=== PATIENT | male | born 1960 | race Hispanic/Latino ===

== ENCOUNTER 2019-11-27 06:33 | Outpatient (CLI) | payer BC ==
[2019-11-27 10:02] LABS: #Eosinphils 0.1 thou/uL (0.0-0.7); #Lymphocytes 2.5 thou/uL (1.20-3.40); #Monocytes 0.5 thou/uL (0.11-0.59); #Neutrophils 3.8 thou/uL (1.40-6.50); %Basophils 0.4 % (0.0-1.0); %Lymphocytes 35.5 % (21.0-51.0); %Monocytes 7.4 % (0.0-10.0); %Neutrophils 54.7 % (42.0-75.0); Hemoglobin 16.2 g/dL (14.0-18.0); Mean Corpuscular HGB CONC 33.9 g/dL (32.0-36.0); Mean Corpuscular Volume 91.6 fL (78.0-98.0); Mean Platelet Volume 9.1 fL (7.4-10.4); Platelet Count 193 thou/uL (130-400); RBC Distribution Width 12.3 % (11.5-14.5); Red Blood Cell (RBC) Count 5.24 mill/uL (4.70-6.10); White Blood Cell (WBC) Count 6.9 thou/uL (4.8-10.8)
[2019-11-27 10:15] LABS: Bacteria/HPF None Seen HPF (None Seen); Bilirubin Negative (Negative); Blood, Urine Negative (Negative); Clarity Clear (Clear); Glucose, Urine (Dipstick) Normal (Negative); Leukocyte Negative Leu/uL (Negative); Nitrite Negative (Negative); Protein, Urine (Dipstick) Negative (Neg-Trace); RBC/HPF 0-3 HPF (0-3); Squamous Epithelial 0-3 HPF (0-3); Urobilinogen Normal mg/dL (Less than 2); WBC/HPF 0-3 HPF (0-3)
[2019-11-27 10:23] LABS: Anion Gap 14 mmol/L (10-20); BUN (Urea Nitrogen) 16 mg/dL (8.4-25.7); Calc. Creatinine Clearance 0 mL/min (70-130); Calcium 9.7 mg/dL (7.8-10.44); Carbon Dioxide 27 mmol/L (22-29); Chloride 102 mmol/L (98-107); Estimated GFR-MDRD 83; Glucose 102 mg/dL (70-105); Potassium 4.1 mmol/L (3.5-5.1); Sodium 139 mmol/L (136-145)
[2019-11-27 10:33] LABS: INR-International Normal Ratio 0.9; Prothrombin Time 12.1 SEC (12.0-14.7)
== END 2019-11-27 06:34 | disposition home or self-care (01) ==
LOC: LABBT 06:33
PROVIDERS: ATTEND Orthopaedic Surgery
DX: Z01.818 Encounter for other preprocedural examination (principal); M17.12 Unilateral primary osteoarthritis, left knee
CPT/HCPCS: 80048; 81001; 85025; 85610; 87081; 93005; 93010

== ENCOUNTER 2019-11-27 08:00 | Inpatient (IN) | payer BC ==
[2019-11-27 08:49] VITALS: BMI 34.1
--- NOTE | 2019-12-04 08:45 | HP ---
HISTORY OF PRESENT ILLNESS: The patient is a 59-year-old male with a long history of progressive problems with the left knee without specific injury. He has weightbearing pain, which is worse with activities, which has progressed despite rest, restriction of activities, lifestyle adjustments, use of meloxicam, and previous cortisone injection. History of pain and popping and the pain is now interfering with day-to-day activities including walking, getting dressed, and sleeping. PAST MEDICAL HISTORY: The patient is otherwise in good health. He has history of high cholesterol. He has no major medical problems. CURRENT MEDICATIONS: Include: 1. Meloxicam. 2. Terbinafine. 3. Nortriptyline. 4. Hydrochlorothiazide. 5. Tylenol No. 3. ALLERGIES: HE HAS NO KNOWN ALLERGIES. . FAMILY HISTORY: Otherwise unremarkable. SOCIAL HISTORY: Otherwise unremarkable. REVIEW OF SYSTEMS: Otherwise unremarkable. PHYSICAL EXAMINATION: GENERAL: Shows a healthy male. HEENT: Unremarkable. NECK: Supple. CHEST: Clear. HEART: Regular rate and rhythm. ABDOMEN: Soft and nontender. RECTAL: Deferred. GENITAL: Deferred. EXTREMITIES: Pertinent findings related to left knee. There is a trace effusion. There is mild varus. There are tenderness and crepitus over the medial joint line. There are healed old lacerations over the anterior aspect of the left knee. There is no instability. Range of motion is 3 to 120 degrees. Neurovascular exam is intact. Distal pulses 1+. There is a mild left antalgic gait. DIAGNOSTIC STUDIES: X-rays of the left knee revealed [id number] collapse medially. IMPRESSION: Degenerative arthritis, left knee. PLAN: Left total knee replacement. The nature of the surgery, length of recovery, and potential complications such as infection, loss of motion, incomplete relief, delayed wound healing, neurovascular injury, thromboembolic phenomena, possible transfusion, need for revision have been discussed in detail. Job ID: [id number]
[2019-12-08] MEDS ORDERED: Tranexamic Acid 1,000 MG/10 ML VIAL ONE ×2 (09:01→12:19)
[2019-12-08] MEDS ORDERED: Vancomycin 1.5 GRAM/300 ML BAG 1.5 GM/300 ML BAG ONE (09:01)
[2019-12-08] MEDS ORDERED: Sodium Chloride 0.9% 100 ML ONE (09:01)
[2019-12-08] MEDS ORDERED: Lidocaine 1% w/Epinephrine 1:100K 20 ML VIAL ONE (09:23)
[2019-12-08] MEDS ORDERED: Bupivacaine 0.25% HCL 30 ML VIAL ONE (09:25)
[2019-12-08] MEDS ORDERED: Ropivacaine 0.5% HCl/PF (150 MG/30 ML VIAL) ONE ×2 (09:28→09:33)
[2019-12-08] MEDS ORDERED: Ropivacaine 0.2% HCl/PF 20 ML ONE (09:28)
[2019-12-08] MEDS ORDERED: Lidocaine 1% (PF) 30 ML VIAL ONE (09:28)
[2019-12-08] MEDS ORDERED: Fentanyl 100 MCG/2 ML VIAL ONE ×3 (09:28→11:37)
[2019-12-08] MEDS ORDERED: Midazolam HCl 2 mg/2 ml Vial ONE (09:28)
[2019-12-08] MEDS ORDERED: Lidocaine 1% PF 5 ML VIAL ONE (09:33)
[2019-12-08] MEDS ORDERED: Ketorolac Tromethamine 30 MG/ML VIAL ONE (09:33)
[2019-12-08] MEDS ORDERED: ePHEDrine/0.9% NaCl/PF SYRINGE 50 mg/10 ml ONE (09:33)
[2019-12-08] MEDS ORDERED: PROPOFOL 200 MG/20 ML VIAL ONE (09:33)
[2019-12-08] MEDS ORDERED: Glycopyrrolate 0.2 MG/ML 5 ML SYRINGE ONE (09:33)
[2019-12-08] MEDS ORDERED: Ropivacaine 0.2% HCl/PF (40 MG/20 ML VIAL) ONE (09:33)
[2019-12-08] MEDS ORDERED: Dexamethasone 20 MG/5 ML VIAL ONE (09:33)
[2019-12-08] MEDS ORDERED: Rocuronium Bromide 10 MG/ML (10ML VIAL) ONE (09:33)
[2019-12-08] MEDS ORDERED: HYDROcodone/Acetaminophen 10/325 mg Tablet PO PRN ×3 (10:15→13:11)
[2019-12-08] MEDS ORDERED: Fentanyl 100 MCG/2 ML VIAL SLOW IVP PRN ×3 (10:15→13:11)
[2019-12-08] MEDS ORDERED: Zolpidem Tartrate 5 MG TAB PO PRN ×2 (10:15→13:11)
[2019-12-08] MEDS ORDERED: Acetaminophen 325 MG TAB PO PRN ×2 (10:15→13:11)
[2019-12-08] MEDS ORDERED: Ropivacaine HCl/PF 250 ML in Premix Bag 1 BAG NERVE BLCK SCH (10:15)
[2019-12-08] MEDS ORDERED: Promethazine HCl 25 MG/ML VIAL IM PRN (10:15)
[2019-12-08] MEDS ORDERED: Ondansetron PF 4 MG/2 ML Vial IVP PRN ×2 (10:15→13:11)
[2019-12-08] MEDS ORDERED: traMADol HCl 50 MG TAB PO PRN ×2 (10:15)
[2019-12-08] MEDS ORDERED: Tranexamic Acid 1,000 MG in Sodium Chloride 0.9% 100 ML IVPB SCH ×2 (12:00→13:11)
[2019-12-08] MEDS ORDERED: Ketorolac Tromethamine 30 MG/ML VIAL IVP SCH (12:00)
--- NOTE | 2019-12-08 12:14 | RAD ---
RADIOGRAPH LEFT KNEE 2 VIEWS: DATE: 12/08/2019 HISTORY: 59-year-old male with chronic left knee pain, status post surgery FINDINGS: Resurfacing changes of articular surfaces of distal femur, patella, and tibial plateau. Metallic pros theses cover the resurfaced articular surfaces of distal femur and tibial plateau. Subcutaneous emphysema in the anterior soft tissues of the thigh and knee indicate recent status of surgery. IMPRESSION: Very recently status post total left knee replacement arthroplasty.
[2019-12-08] MEDS ORDERED: diphenhydrAMINE 25 MG CAP PO PRN (13:11)
[2019-12-08] MEDS ORDERED: Promethazine HCl 25 MG/ML VIAL SLOW IVP PRN (13:11)
[2019-12-08] MEDS: Ketorolac Tromethamine 30 MG/ML VIAL IVP SCH ×2 (13:29→18:03)
[2019-12-08] MEDS: Sodium Chloride 0.9% 1,000 ML IV SCH ×2 (13:30→22:18)
--- NOTE | 2019-12-08 16:38 | OP ---
DATE OF PROCEDURE: 12/08/2019 BUILDING CLEANER: Saeed Walters PA-C ANESTHESIA: General plus adductor canal and sciatic nerve blocks. PREOPERATIVE DIAGNOSIS: Degenerative arthritis, left knee. POSTOPERATIVE DIAGNOSIS: Degenerative arthritis, left knee. PROCEDURE PERFORMED: Left total knee replacement with computer-assisted navigation with cemented Linh Triathlon components (#6 femoral component, #5 primary tibial baseplate with an 11 mm CS plastic insert, and all-plastic A32 patellar component). DESCRIPTION OF PROCEDURE: After satisfactory anesthesia was induced in supine position, sequential compression device was placed on the nonoperative leg throughout the procedure. The left leg was then prepped and draped in the routine sterile fashion. The left leg was elevated, extended with Esmarch bandage, and the tourniquet inflated to 300 mmHg. A gently curved medial parapatellar incision was made, carried down to the subcutaneous tissues, and bleeding points were controlled with the Bovie cautery. The medial parapatellar arthrotomy was performed. The patella was dislocated laterally and portions of the fat pad were excised for exposure. There was marked degenerative arthritis of the knee especially medially with large areas of exposed bone. Meniscal remnants and osteophytes were removed. Using the Vivaty pinless navigation system and the appropriate guides, the distal femoral and proximal tibial articular surfaces were excised with an oscillating saw to accept the trial components. It was felt that #6 femoral component and #5 tibial baseplate with 11 mm CS plastic insert gave appropriate size, fit, stability, and correction of the preoperative deformity. The patellar articular surface was excised to accept an all-plastic A32 patellar component. There was good range of motion and good patellar tracking. The trial components were removed. The knee was copiously irrigated with pulsatile lavage. The bony surfaces were thoroughly cleaned and dried. The permanent components were then cemented in a single stage using 1 package of cement premixed with 1 g of tobramycin powder. Excess cement was removed. There was again good fit and stability of the components. The knee was copiously irrigated with pulsatile lavage. The medial retinaculum and quadriceps mechanism were closed with interrupted #2 Vicryl and a running #2 Quill. Subcutaneous tissues were closed with running subcuticular 0 Quill suture. Skin was then infiltrated with a mixture of 30 mL of 0.25% Marcaine and 20 mL of 1% lidocaine with epinephrine. Skin was closed with running subcuticular 3-0 Monoderm and SurgiSeal skin adhesive. Sterile bulky compressive dressing was applied. The tourniquet was deflated after 74 minutes. The foot promptly pinked up, and a sequential compression device was applied to his operate leg. He was awakened and taken to recovery room in stable condition. There were no apparent intraoperative complications. The estimated blood loss was less than 100 mL. Job ID: [id number]
[2019-12-08] MEDS: CEFAZOLIN 2 GM in Premix Bag 1 BAG IVPB SCH (17:11)
[2019-12-08] MEDS: Senokot S 8.6-50 MG TAB PO SCH (20:08)
[2019-12-08] MEDS: Atenolol 25 MG TAB PO SCH (20:59)
[2019-12-08] MEDS: Aspirin 81 mg Enteric Coated Tablet PO SCH (20:59)
[2019-12-08] MEDS: Fluticasone Propionate Nasal Spray 16 gm Bottle NASAL SCH (21:00)
[2019-12-08] MEDS ORDERED: Vancomycin 1.5 GRAM/300 ML BAG 1.5 GM in Premix Bag 1 BAG IVPB SCH (21:00)
[2019-12-09] MEDS: CEFAZOLIN 2 GM in Premix Bag 1 BAG IVPB SCH (00:09)
[2019-12-09] MEDS: Ketorolac Tromethamine 30 MG/ML VIAL IVP SCH ×5 (00:10→23:50)
[2019-12-09 05:08] LABS: Hemoglobin 13.6 g/dL (14.0-18.0); Mean Corpuscular HGB CONC 33.1 g/dL (32.0-36.0); Mean Corpuscular Hemoglobin 30.9 pg (27.0-31.0); Mean Corpuscular Volume 93.1 fL (78.0-98.0); Mean Platelet Volume 9.2 fL (7.4-10.4); Platelet Count 155 thou/uL (130-400); RBC Distribution Width 12.3 % (11.5-14.5); White Blood Cell (WBC) Count 10.4 thou/uL (4.8-10.8)
[2019-12-09] MEDS: traMADol HCl 50 MG TAB PO PRN ×2 (06:17→15:10)
[2019-12-09] MEDS: HYDROcodone/Acetaminophen 10/325 mg Tablet PO PRN ×4 (08:05→23:54)
[2019-12-09] MEDS: Senokot S 8.6-50 MG TAB PO SCH ×2 (08:05→20:57)
[2019-12-09] MEDS: Multivitamin W/ Minerals 1 TAB PO SCH (08:05)
[2019-12-09] MEDS: Aspirin 81 mg Enteric Coated Tablet PO SCH ×2 (08:05→20:57)
[2019-12-09] MEDS: Fluticasone Propionate Nasal Spray 16 gm Bottle NASAL SCH ×2 (08:06→20:57)
[2019-12-09] MEDS: Sodium Chloride 0.9% 1,000 ML IV SCH ×2 (08:50→19:38)
--- NOTE | 2019-12-09 09:29 | PRG ---
DATE OF SERVICE: 12/09/2019 SUBJECTIVE: Roldan is a 59-year-old male postop day 1 from left total knee arthroplasty. His pain is relatively well controlled. OBJECTIVE: VITAL SIGNS: Temperature 97.6, pulse 65, respiratory rate 18 and nonlabored, blood pressure 132/78. GENERAL: He is alert, oriented, responsive, and appropriate with examiner. His incision is clean, no strike through. EXTREMITIES: Neurovascularly intact in the left lower extremity. LABORATORY DATA: Hemoglobin and hematocrit 13.6 and 40.9. IMPRESSION: A 59-year-old male postop day 1 left total knee arthroplasty. PLAN: Continue current care. Probable discharge home tomorrow. Job ID: [id number]
[2019-12-09] MEDS: Atenolol 25 MG TAB PO SCH (20:57)
[2019-12-10] MEDS: Sodium Chloride 0.9% 1,000 ML IV SCH ×2 (06:18→14:30)
[2019-12-10] MEDS: Ketorolac Tromethamine 30 MG/ML VIAL IVP SCH ×2 (06:20→12:03)
[2019-12-10] MEDS: Aspirin 81 mg Enteric Coated Tablet PO SCH (08:15)
[2019-12-10] MEDS: Senokot S 8.6-50 MG TAB PO SCH (08:15)
[2019-12-10] MEDS: Fluticasone Propionate Nasal Spray 16 gm Bottle NASAL SCH (08:16)
[2019-12-10] MEDS: HYDROcodone/Acetaminophen 10/325 mg Tablet PO PRN ×2 (08:16→12:01)
[2019-12-10] MEDS: Multivitamin W/ Minerals 1 TAB PO SCH (08:16)
[2019-12-10 15:49] VITALS: BP 141/85; TEMP 98.2
== END 2019-12-10 15:15 | disposition home or self-care (01) | DRG 470 ==
LOC: SURG A 12-08 08:45 → SJJU 12-08 13:24
PROVIDERS: ADMIT Orthopaedic Surgery; ATTEND Orthopaedic Surgery
PROC: 0SRD0J9 Replacement of Left Knee Joint with Synthetic Substitute, Cemented, Open Approach (ICD-10-PCS; principal; 2019-12-08)
PROC: 8E0YXBZ Computer Assisted Procedure of Lower Extremity (ICD-10-PCS; 2019-12-08)
DX: M17.12 Unilateral primary osteoarthritis, left knee (principal); E78.00 Pure hypercholesterolemia, unspecified; I10 Essential (primary) hypertension; G43.909 Migraine, unspecified, not intractable, without status migrainosus; F32.9 Major depressive disorder, single episode, unspecified; Z79.899 Other long term (current) drug therapy
CPT/HCPCS: 36415; 85027; C1713; C1776; J0690; J1100; J1885; J2001; J2250; J2704; J2795; J3010; J3490; S0020

== ENCOUNTER 2022-04-07 16:58 | Outpatient (CLI) | payer BC | END 2022-04-07 16:59 | disposition home or self-care (01) | LOC: RAD 16:58 | PROVIDERS: ATTEND Nurse Practitioner Family | DX: S99.911A Unspecified injury of right ankle, initial encounter (principal); M79.89 Other specified soft tissue disorders ==